=== PATIENT | male | born 1955 | race Caucasian/White ===

== ENCOUNTER 2023-02-06 06:17 | Day surgery (SDC) | payer MEDICARE, OTHER, SELFPAY ==
[2023-02-04 11:52] VITALS: BMI 20.7
[2023-02-06 06:35] VITALS: BP 108/69; PULSE 80; RESP 20; TEMP 36.1
[2023-02-06] MEDS: sodium chloride 0.9% 1,000 ML 30 ML IV (06:41)
[2023-02-06] MEDS: levalbuterol 1.25 mg/3 mL Neb INHALATION (07:15)
[2023-02-06 07:20] VITALS: PULSE 68; RESP 18; O2SAT 94
[2023-02-06 07:23] VITALS: PULSE 67
--- NOTE | 2023-02-06 07:34 | ANES.PREANE2 ---
Pre-Anesthetic Assessment Height/Weight: Height 1.78 m Weight 65.771 kg Temp Pulse Resp BP Pulse Ox O2 Del Method 97 F L 67 18 108/69 94 Room Air 02/06/23 06:35 02/06/23 07:23 02/06/23 07:20 02/06/23 06:35 02/06/23 07:20 02/06/23 07:20 Preop Diagnosis: screening Operation Date: 02/06/23 08:00 Proposed Procedures p [id number] Colon Z12.11(Not Applicable) - Tree Weston DO Familial anesthetic complications: none Was Beta Nikia taken within 24 hours: N/A Was Clonidine taken within 24 hours: N/A Last intake: Intake Last Liquid Date 02/05/23 Last Liquid Time 22:00 Last Solid Date 02/04/23 Last Solid Time 17:00 Social Tobacco and No alcohol 1ppd pack(s) per day 50+ pack years Exam alert, oriented x 3, clear to auscultation bilaterally (dim bilaterally) and regular rate & rhythm Airway Submandibular: within normal limits Cervical ROM: within normal limits Mallampati: Class I Dentition: false Pulmonary Chronic Obstructive Pulmonary Disease, Exertional Dyspnea and Shortness of Breath O2 PRN 2L CV/HEM Hypertension None reported Hepatic None reported GI Gastroesophageal Reflux Disease (food related) Metabolic None reported Musc/skel None reported Neuropsych None reported Anesthetic Plan ASA status: 3 Anesthesia: MAC Medications/Allergies Home Medications Medication Instructions Recorded Confirmed Last Taken Type albuterol sulfate 90 mcg/actuation 2 puff inhalation Q6H PRN Allergy 01/02/23 02/04/23 02/06/23 04:30 History aerosol inhaler Symptoms fluticasone fur. 100 mcg-umeclid 1 inh inhalation DAILY 01/02/23 02/04/23 02/06/23 04:30 History 62.5 mcg-vilant 25 mcg inhalat.powder (Trelegy Ellipta) ipratropium 0.5 mg-albuterol 3 mg 3 ml inhalation Q6H PRN Allergy 01/02/23 02/04/23 02/06/23 04:30 History (2.5 mg base)/3 mL nebulization Symptoms soln lisinopril 20 mg tablet 20 mg PO DAILY 01/02/23 02/04/23 02/05/23 History Allergies Allergy/AdvReac Type Severity Reaction Status Date / Time No Known Allergies Allergy Unverified 01/02/23 09:58 Current Medications Generic Name Dose Route Start Last Admin Trade Name Freq PRN Reason Stop Dose Admin Sodium Chloride 1,000 mls @ 30 mls/hr 02/06/23 06:30 02/06/23 06:41 Sodium Chloride 0.9% IV 02/07/23 06:29 30 mls/hr .Q24H JACOBO Administration Data Anesthesia Cardiac Studies: No Data to Display
--- NOTE | 2023-02-06 08:03 | P.HP_ITS ---
Providers/Chief Complaint Primary Care Provider: Felicity Pastor DO Chief Complaint: Z12.11 History of Present Illness Josh Patel is a 67 year old male who presents for a screening colonoscopy. His last colonoscopy was greater than 10 years ago and multiple polyps were removed. He reports that he had significant postprocedural bleeding and had to come back to the hospital after bleeding through his jeans in the parking lot. He denies any family history of colon cancer. Denies any abdominal pain, nausea, emesis, diarrhea, constipation, hematochezia and/or melena. Medications/Allergies Home Medications Medication Instructions Recorded Confirmed Last Taken Type albuterol sulfate 90 mcg/actuation 2 puff inhalation Q6H PRN Allergy 01/02/23 0 02/04/23 02/06/23 04:30 History aerosol inhaler Symptoms fluticasone fur. 100 mcg-umeclid 1 inh inhalation DAILY 01/02/23 02/04/23 02/06/23 04:30 History 62.5 mcg-vilant 25 mcg inhalat.powder (Trelegy Ellipta) ipratropium 0.5 mg-albuterol 3 mg 3 ml inhalation Q6H PRN Allergy 01/02/23 02/04/23 02/06/23 04:30 History (2.5 mg base)/3 mL nebulization Symptoms soln lisinopril 20 mg tablet 20 mg PO DAILY 01/02/23 02/04/23 02/05/23 History Allergies Allergy/AdvReac Type Severity Reaction Status Date / Time No Known Allergies Allergy Unverified 01/02/23 09:58 Vitals/I&O/Wt Last Vital Signs Temp 97 F L 02/06/23 06:35 Pulse 67 02/06/23 07:23 Resp 18 02/06/23 07:20 BP 108/69 02/06/23 06:35 Pulse Ox 94 02/06/23 07:20 O2 Del Method Room Air 02/06/23 07:20 Weight last 48 hrs Weight 145 lb A&P Assessment and plan (1) History of colon polyps: Plan Screening colonoscopy The risks and benefits of the procedure, including bleeding, infection, intestinal perforation requiring surgery, missed lesion were explained to the patient. The patient is understanding of the risks and wishes to proceed. Attestations Medical Necessity Statement*: Home Coding Level of Care Code Acute Code for Chg Fwd Diagnoses History of colon polyps Z86.010
[2023-02-06 08:36] VITALS: BP 97/62; PULSE 74; RESP 16; TEMP 36.1; O2SAT 98
[2023-02-06 08:41] VITALS: BP 106/80; PULSE 79; RESP 18; O2SAT 96
[2023-02-06 08:50] VITALS: BP 115/80; PULSE 70; RESP 18; O2SAT 98
--- NOTE | 2023-02-06 14:09 | ANE.PACU2 ---
Inpatient post-anesthesia follow up: Airway intact: Yes Vital signs: Temperature 97.0 F Pulse Rate 70 Respiratory Rate 18 Blood Pressure 115/80 Pulse Oximetry 98 Oxygen Delivery Me thod Room Air Oxygen Flow Rate 3 Fraction of Inspir ed Oxygen Hydration adequate: Yes Nausea and vomiting: No Pain level: 2 Mental status: Baseline
== END 2023-02-06 09:07 | disposition home or self-care (01) ==
PROVIDERS: PCP Family Medicine; Visit Provider Surgery
PROC: 0DJD8ZZ Inspection of Lower Intestinal Tract, Via Natural or Artificial Opening Endoscopic (ICD-10-PCS; CPT 45378; principal; 2023-02-06 08:00)
DX: Z12.11 Encounter for screening for malignant neoplasm of colon (principal); Z86.010 Personal history of colon polyps; D12.4 Benign neoplasm of descending colon; F17.210 Nicotine dependence, cigarettes, uncomplicated; J44.9 Chronic obstructive pulmonary disease, unspecified; I10 Essential (primary) hypertension; K21.9 Gastro-esophageal reflux disease without esophagitis; K57.30 Diverticulosis of large intestine without perforation or abscess without bleeding; K63.5 Polyp of colon
CPT/HCPCS: 45385; 88305; 94640; J2704; J7030; J7614

== ENCOUNTER → 2023-02-20 15:52 | Outpatient (BNVA) | payer MEDICARE, OTHER, SELFPAY | PROVIDERS: PCP Family Medicine; Visit Provider Surgery | DX: D12.6 Benign neoplasm of colon, unspecified (principal) | CPT/HCPCS: 99024; 99212 ==